=== PATIENT | female | born 1940 | race Caucasian/White ===

== ENCOUNTER 2020-12-24 18:27 | Outpatient (REF) | payer MEDICARE, SELFPAY ==
[2020-12-24 19:35] LABS: HCT 43.1 % (36.0-46.0); HGB 14.5 g/dL (11.2-15.7); MCH 29.2 pg (27.0-33.0); MCHC 33.6 % (32.0-36.0); MCV 86.7 fL (80-95); MPV 9.3 fL (8.0-11.0); Platelet Count 306 10^3/uL (130-400); RBC 4.97 10^6/uL (3.93-5.22); RDW 13.2 % (11.7-14.6); RDW-SD 41.5 fL; WBC 6.04 10^3/uL (4.4-10.8)
[2020-12-24 19:44] LABS: ESR 20 mm//hr (0-30)
[2020-12-24 20:07] LABS: Iron 28 ug/dL (50-170)
[2020-12-24 20:15] LABS: Ferritin 294 ng/mL (8-252)
[2020-12-24 20:30] LABS: C-Reactive Protein 0.36 mg/dL (0.0-0.3)
== END 2020-12-24 18:28 | disposition home or self-care (01) ==
LOC: NCHCN 18:27
PROVIDERS: PCP Internal Medicine; Visit Provider Nurse Practitioner Family
DX: M25.552 Pain in left hip (principal); R03.0 Elevated blood-pressure reading, without diagnosis of hypertension
CPT/HCPCS: 85027; 85652; 82728; 83540; 86140

== ENCOUNTER → 2021-02-04 10:48 | Outpatient (BNVA) | payer MEDICARE, SELFPAY | PROVIDERS: PCP Internal Medicine; Referring Provider Internal Medicine; Visit Provider Student in an Organized Health Care Education/Training Program | DX: M25.852 Other specified joint disorders, left hip (principal) | CPT/HCPCS: 99203 ==

== ENCOUNTER 2021-02-07 00:32 | Outpatient (CLI) | payer MEDICARE, SELFPAY ==
--- NOTE | 2021-02-07 13:18 | DI.RAD_ITS ---
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 Radiologist not present. CONTRAST MATERIAL: None COMPARISON: CR XR HIP LT MIN 2V AND PELVIS from 12/25/2020 CR XR HIP LT MIN 2V AND PELVIS from 12/25/2020 FINDINGS: Fluoroscopy was provided for Dr. Paulson during left hip injection. Submitted image(s) reveal intra-articular contrast in the left hip. Please refer to the procedure report for complete details. Cumulative Dose: Scoutr=1.62 mGy IMPRESSION: RADIATION DOSE DELIVERED:
--- NOTE | 2021-02-07 13:20 | W.PROCNOTE ---
Procedure Note Date of procedure: 02/07/21 Procedure: Right Hip Injection with Fluoroscopic Guidance Surgeon/Proceduralist/Physician: Ace Paulson Procedure Diagnosis: Right Hip Osteoarthritis Procedure Indications: Federica has had persistent pain of the RIGHT hip and groin. Noninvasive measures have been tried. To serve as both diagnostic and therapeutic, an injection under fluoroscopy was recommended. I had discussed the risks of the procedure and the patient elected to proceed. Procedure Description: Federica was greeted in the flouroscopy room. The correct side was identified and the consent was reviewed with the patient and signed. The patient was then placed in the supine position on the fluoroscopy table. The RIGHT hip was then prepped with Chloraprep. The anterolateral injection starting point was identiifed by bony landmarks and fluoroscopy. The skin and soft tissue in the tract of the injection was anesthetized with 1% Lidocaine. A spinal needle was then inserted deep into the hip joint at the level of the lateral femoral neck under fluoroscopic guidance. A small amount of Omnipaque solution was injected to confirm intraarticular placement. Once confirmed, the hip was injected with 6cc of 0.5% Bupivicaine and 80mg of Depo-Medrol. A bandaid was placed on the injection site. The patient tolerated the procedure well and noted improvement in pre-injection pain.
[2021-02-07] MEDS: Omnipaque 300 MG/ML 10 ML BTL IJ (13:53)
[2021-02-07] MEDS: methylPREDNISolone ACETATE 80 MG/ML VIAL IM (13:56)
== END 2021-02-07 00:52 ==
PROVIDERS: PCP Internal Medicine; Visit Provider Student in an Organized Health Care Education/Training Program
DX: M25.551 Pain in right hip (principal); R10.31 Right lower quadrant pain; M16.11 Unilateral primary osteoarthritis, right hip
CPT/HCPCS: 20610; 77002; J1040

== ENCOUNTER 2022-12-17 14:29 | Outpatient (REF) | payer MEDICARE, SELFPAY ==
[2022-12-17 21:19] LABS: HCT 42.8 % (36.0-46.0); HGB 14.5 g/dL (11.2-15.7); MCH 29.1 pg (27.0-33.0); MCHC 33.9 % (32.0-36.0); MCV 86 fL (80-95); MPV 9.3 fL (8.0-11.0); Platelet Count 264 10^3/uL (130-400); RBC 4.99 10^6/uL (3.93-5.22); RDW 13.8 % (11.7-14.6); RDW-SD 43.1 fL; WBC 5.58 10^3/uL (4.4-10.8)
[2022-12-17 21:52] LABS: ALT 26 U/L (14-59); AST 20 U/L (15-37); Albumin 3.7 g/dL (3.4-5.0); Alkaline Phosphatase 94 U/L (46-116); Amylase 53 U/L (25-115); Anion Gap 3.2 mmol/L (3-11); BUN 18 mg/dL (7-18); Bilirubin, Total 0.6 mg/dL (0.2-1.0); CO2 31.8 mmol/L (21.0-32.0); CREATININE 0.9 mg/dL (0.55-1.02); Calcium 9.6 mg/dL (8.5-10.1); Chloride 105 mmol/L (98-107); Estimated GFR 64.63 (mL/min/1.73m2); Glucose 94 mg/dL (74-106); NT-proBNP 97 pg/mL (<300); Potassium 3.9 mmol/L (3.5-5.1); Sodium 140 mmol/L (136-145); Total Protein 6.9 g/dL (6.4-8.2)
== END 2022-12-17 14:30 | disposition home or self-care (01) ==
LOC: NCHCN 14:29
PROVIDERS: PCP Internal Medicine; Visit Provider Nurse Practitioner Family
DX: R10.11 Right upper quadrant pain (principal)
CPT/HCPCS: 80053; 85027; 82150; 83880

== ENCOUNTER 2023-12-16 18:41 | Outpatient (REF) | payer OTHER, SELFPAY ==
[2023-12-16 19:53] LABS: ESR 8 mm/hr (0-30); HCT 46.3 % (36.0-46.0); MCH 29.1 pg (27.0-33.0); MCHC 34.6 % (32.0-36.0); MCV 84 fL (80-95); MPV 8.9 fL (8.0-11.0); Platelet Count 312 10^3/uL (130-400); RBC 5.49 10^6/uL (3.93-5.22); RDW 13.2 % (11.7-14.6); RDW-SD 41.1 fL; WBC 6.12 10^3/uL (4.4-10.8)
[2023-12-17 17:54] LABS: CRP, High Sensitivity <0.34 mg/L (See Note)
== END 2023-12-16 18:42 | disposition home or self-care (01) ==
LOC: NCHCN 18:41
PROVIDERS: PCP Internal Medicine; Visit Provider Internal Medicine
DX: M54.12 Radiculopathy, cervical region (principal)
CPT/HCPCS: 85027; 85652; 86141

== ENCOUNTER 2025-04-20 18:37 | Outpatient (REF) | payer MEDICARE, SELFPAY ==
[2025-04-20 19:05] LABS: HCT 42.8 % (36.0-46.0); HGB 14.0 g/dL (11.2-15.7); MCH 28.6 pg (27.0-33.0); MCHC 32.7 % (32.0-36.0); MCV 87 fL (80-95); MPV 9.2 fL (8.0-11.0); Platelet Count 300 10^3/uL (130-400); RBC 4.90 10^6/uL (3.93-5.22); RDW 14.6 % (11.7-14.6); RDW-SD 46.6 fL; WBC 5.51 10^3/uL (4.4-10.8)
[2025-04-20 19:47] LABS: ALT 25 U/L (14-59); AST 21 U/L (15-37); Albumin 3.9 g/dL (3.4-5.0); Alkaline Phosphatase 135 U/L (46-116); Anion Gap 6.7 mmol/L (3-11); BUN 23 mg/dL (7-18); Bilirubin, Total 0.6 mg/dL (0.2-1.0); CO2 31.3 mmol/L (21.0-32.0); Calcium 10.2 mg/dL (8.5-10.1); Chloride 104 mmol/L (98-107); Estimated GFR 73.52 (mL/min/1.73m2); Glucose 90 mg/dL (74-106); Potassium 5.0 mmol/L (3.5-5.1); Sodium 142 mmol/L (136-145); TSH 2.32 uIU/mL (0.36-3.74); Total Protein 7.1 g/dL (6.4-8.2); Vitamin B12 1204 pg/mL (193-986)
== END 2025-04-20 18:38 | disposition home or self-care (01) ==
LOC: NCHCN 18:37
PROVIDERS: PCP Internal Medicine; Visit Provider Internal Medicine
DX: F03.A4 Unspecified dementia, mild, with anxiety (principal)
CPT/HCPCS: 80053; 85027; 82607; 84443